=== PATIENT | male | born 1985 | race Caucasian/White ===

== ENCOUNTER 2021-01-03 14:57 | Emergency (ER) | payer OTHER, SELFPAY ==
[2021-01-03] MEDS ORDERED: BUPIVACAINE 0.5% PF 10 ML VIAL ONE (15:44)
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
--- NOTE | 2021-01-03 16:51 | EDPHYS ---
Physician Documentation [facility] Name: Arnulfo Birmingham Age: 35 yrs Sex: Male : 1985 Arrival Date: 01/03/2021 Time: 15:02 Bed 8 Private MD: ED Physician Poli Hill HPI: 01/03 15:24 This 35 yrs old Male presents to ER via Wheelchair with complaints of Hand jmm Injury, Laceration To Hand. 15:24 The patient or guardian reports injury. The complaints affect the palmar aspect of jmm proximal phalanx of left ring finger. Onset: The symptoms/episode began/occurred acutely, just prior to arrival. Modifying factors: The symptoms are alleviated by nothing, the symptoms are aggravated by nothing. Associated signs and symptoms: Pertinent negatives: decreased sensation distally, fever, numbness distally, tingling distally, vomiting. The patient has not experienced similar symptoms in the past. This is a 35 year old male with no chronic medical conditions that presents to the ED with complaints of laceration to the left 4th finger after being crushed on a gate. Not UTD on tetanus immunizations. . Historical: - Allergies: 15:07 No Known Allergies; jd3 - PMHx: 15:07 None; jd3 - PSHx: 15:07 None; jd3 - Immunization history:: Adult Immunizations up to date, Last tetanus immunization: unknown. - Social history:: Smoking status: Patient denies any tobacco usage or history of. ROS: 15:24 Constitutional: Negative for fever, chills, and weight loss, Cardiovascular: Negative jmm for chest pain, palpitations, and edema, Respiratory: Negative for shortness of breath, cough, wheezing, and pleuritic chest pain. 15:24 MS/extremity: Positive for injury or acute deformity, laceration. 15:24 All other systems are negative. Exam: 15:24 Constitutional: This is a well developed, well nourished patient who is awake, alert, jmm and in no acute distress. Head/Face: atraumatic. Eyes: EOMI, no conjunctival erythema appreciated ENT: Moist Mucus Membranes Neck: Trachea midline, Supple Chest/axilla: Normal chest wall appearance and motion. Cardiovascular: Regular rate and rhythm. No edema appreciated Abdomen/GI: Non distended, soft Back: Normal ROM Skin: General appearance color normal MS/ Extremity: Moves all extremities, no obvious deformities appreciated, no edema noted to the lower extremities Neuro: Awake and alert, normal gait 15:24 Musculoskeletal/extremity: 3 cm laceration noted to the left 4th proximal phalanx, FROM appreciated, < 2 sec dist cap refill, (+) NVI. 15:24 Skin: Appearance: Color: normal in color. 15:24 Neuro: Orientation: is normal, Mentation: is normal, Memory: is normal. 15:24 Psych: Behavior/mood is pleasant, cooperative. Vital Signs: 15:07 BP 138 / 91; Pulse 105; Resp 17 S; Temp 98.1(O); Pulse Ox 100% on R/A; Weight 106.59 kg jd3 (R); Height 5 ft. 11 in. (180.34 cm) (R); Pain 10/10; 17:17 BP 136 / 88; Pulse 99; Resp 18; Pulse Ox 98% ; bw 15:07 Body Mass Index 32.78 (106.59 kg, 180.34 cm) jd3 Laceration: 16:49 Wound Repair of 3cm ( 1.2in ) subcutaneous laceration to left hand. Distal jmm neuro/vascular/tendon intact. Anesthesia: Digital block administered with 4 mls of 0.5% marcaine. Wound prep: Simple cleansing with betadine by me. Skin closed with 5 4-0 Prolene using simple sutures and sterile technique. Patient tolerated well. MDM: 15:[address] [facility] 16:49 Data reviewed: vital signs, nurses notes. Counseling: I had a detailed discussion with [facility] the patient and/or guardian regarding: the historical points, exam findings, and any diagnostic results supporting the discharge/admit diagnosis, radiology results, the need for outpatient follow up, to return to the emergency department if symptoms worsen or persist or if there are any questions or concerns that arise at home. ED course: Patient is alert and non toxic in appearance in the ED. Given wound infection return precautions. Patient is currently on abx for cellulitis of his leg. . 03/02 15:33 Order name: Hand Left 3 View XRAY; Complete Time: 16:37 [facility] Administered Medications: 16:00 Drug: Marcaine (0.5 %) 10 ml {Note: administered by PA. Johnathan} Volume: 10 ml; Route: bw Infiltration; Disposition: 18:35 Co-signature as Attending Physician, Poli Hill MD. rn Disposition: 01/03/21 16:50 Discharged to Home. Impression: Finger Laceration. - Condition is Stable. - Discharge Instructions: Laceration Care, Adult. - Medication Reconciliation Form, Thank You Letter, Antibiotic Education, Prescription Opioid Use form. - Follow up: Cesar Garcia MD; When: 1 week; Reason: Recheck today's complaints, Continuance of care, Staple/Suture removal, Re-evaluation by your physician. Signatures: Dispatcher [employer] EDMS Johnathan Mcnulty PA PA jmm Nieto, Roman, MD MD rn Davies, Jonathon, RN RN Carmina Juarez RN RN bw Corrections: (The following items were deleted from the chart) 17:25 16:50 01/03/2021 16:50 Discharged to Home. Impression: Finger Laceration. Condition is bw Stable. Forms are Medication Reconciliation Form, Thank You Letter, Antibiotic Education, Prescription Opioid Use. Follow up: Cesar Garcia; When: 1 week; Reason: Recheck today's complaints, Continuance of care, Staple/Suture removal, Re-evaluation by your physician. karina
[2021-01-03 18:17] VITALS: TEMP 98.1
[2021-01-03 18:18] VITALS: BP 136/88; O2SAT 98
== END 2021-01-03 17:25 | disposition home or self-care (01) ==
LOC: ER 14:57
PROC: 0JQK0ZZ Repair Left Hand Subcutaneous Tissue and Fascia, Open Approach (ICD-10-PCS; principal; 2021-01-03)
DX: S61.215A Laceration without foreign body of left ring finger without damage to nail, initial encounter (principal); W23.0XXA Caught, crushed, jammed, or pinched between moving objects, initial encounter; Y93.9 Activity, unspecified; Y92.9 Unspecified place or not applicable
CPT/HCPCS: 99284

== ENCOUNTER 2022-09-27 12:42 | Emergency (ER) | payer SELFPAY ==
[2022-09-27] MEDS ORDERED: MORPHINE 4 MG/ML SYR ONE ×2 (13:05→15:07)
[2022-09-27] MEDS ORDERED: ONDANSETRON 4 MG/2 ML VIAL ONE (13:06)
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
[2022-09-27] MEDS ORDERED: TDAP (DIPHTH,PERTUSS(ACELL),TET VAC) 0.5 ML VIAL IMVAC ONE (13:38)
[2022-09-27 13:43] LABS: Absolute Lymphocytes (CBC) 1.5 K/uL (0.7-4.9); Hematocrit 39.4 % (39.6-49.0); Lymphocytes % 14.7 % (15.3-44.8); MCV 88.2 fL (80-100); MPV 7.6 fL (7.6-11.3); RBC Red Blood Cell Count 4.47 M/uL (4.33-5.43)
[2022-09-27] MEDS ORDERED: Ringers Lactate 1,000 ML IV ONE (14:02)
[2022-09-27 14:15] LABS: Albumin 3.9 g/dL (3.4-5.0); Bilirubin Total 0.3 mg/dL (0.2-1.0); Potassium 4.3 mmol/L (3.5-5.1); Protein, Total 7.7 g/dL (6.4-8.2)
[2022-09-27 16:36] VITALS: TEMP 98.3
[2022-09-27 16:39] VITALS: BP 133/74; O2SAT 97
== END 2022-09-27 16:10 | disposition short-term general hospital (02) ==
LOC: ER 12:42
DX: T20.20XA Burn of second degree of head, face, and neck, unspecified site, initial encounter (principal); T22.212A Burn of second degree of left forearm, initial encounter; T31.11 Burns involving 10-19% of body surface with 10-19% third degree burns; R52 Pain, unspecified
CPT/HCPCS: 36415; 80053; 82550; 85025; 96361; 96372; 96374; 96375; 99285; J2405; J7120

== ENCOUNTER 2023-05-09 10:42 | Emergency (ER) | payer SELFPAY ==
[2023-05-09] MEDS ORDERED: LIDOCAINE 1% MPF 5 ML VIAL ONE (11:06)
--- NOTE | 2023-05-09 11:13 | ER ---
Nurse's Notes [facility] Name: Arnulfo Birmingham Age: 38 yrs Sex: Male : 1985 Arrival Date: 05/09/2023 Time: 10:42 Bed 12 Private MD: Doug Lancaster T Diagnosis: Laceration without foreign body of left index finger without damage to nail Presentation: 05/09 10:58 Chief complaint: Patient states: Fish hook L hand 2nd digit. Coronavirus screen: ll1 Vaccine status: Patient reports receiving the 2nd dose of the covid vaccine. Client denies travel out of the [place] in the last 14 days. At this time, the client does not indicate any symptoms associated with coronavirus-19. Ebola Screen: Patient denies travel to an Ebola-affected area in the 21 days before illness onset. Initial Sepsis Screen: Does the patient meet any 2 criteria? No. Patient's initial sepsis screen is negative. Does the patient have a suspected source of infection? Yes: Skin breakdown/wound. Risk Assessment: Do you want to hurt yourself or someone else? Patient reports no desire to harm self or others. Onset of symptoms was May 09, 2023. 10:58 Method Of Arrival: Ambulatory ll1 10:58 Acuity: WOODY 4 ll1 Triage Assessment: 10:58 General: Appears uncomfortable, Behavior is calm, cooperative, appropriate for age. ll1 Pain: Complains of pain in left hand Quality of pain is described as aching. Musculoskeletal: Reports fish hook L hand 2nd digit. Injury Description: Foreign body. Historical: - Allergies: 10:58 Morphine; ll1 - Home Meds: 10:58 None [Active]; ll1 - PMHx: 10:58 None; ll1 - PSHx: 10:58 None; ll1 - Immunization history:: Adult Immunizations up to date, Last tetanus immunization: up to date. - Social history:: Smoking status: unknown. - Family history:: not pertinent. - Hospitalizations: : No recent hospitalization is reported. Screenin:19 [facility] ED Fall Risk Assessment (Adult) Score/Fall Risk Level 0 - 2 = Low Risk ll1 Oriented to surroundings, Maintained a safe environment, Educated pt \T\ family on fall prevention, incl call for assistance when getting out of bed, Hourly rounding (assess needs \T\ fall precautionary measures) done. Abuse screen: Denies threats or abuse. Nutritional screening: No deficits noted. Tuberculosis screening: No symptoms or risk factors identified. Assessment: 11:18 Reassessment: No changes from previously documented assessment. Patient and/or family ll1 updated on plan of care and expected duration. Pain level reassessed. Patient is alert, oriented x 3, equal unlabored respirations, skin warm/dry/pink. Musculoskeletal: Circulation, motion, and sensation intact. Capillary refill < 3 seconds. Vital Signs: 10:58 BP 144 / 81; Pulse 80; Resp 16; Temp 98.2; Pulse Ox 100% ; Weight 106.59 kg; Height 5 ll1 ft. 11 in. ; Pain 10/10; 11:20 BP 156 / 83; Pulse 92; Resp 18; Pulse Ox 100% ; Pain 0/10; ll1 10:58 Body Mass Index 32.78 (106.59 kg, 180.34 cm) ll1 10:58 Pain Scale: Adult ll1 11:20 Pain Scale: Adult ll1 ED Course: 10:43 Patient arrived in ED. am2 10:43 Doug Lancaster MD is Private Physician. am2 10:47 Poli Hill MD is Attending Physician. rn 10:58 Arm band placed on Patient placed in an exam room, on a stretcher. ll1 10:59 Triage completed. ll1 11:15 Patient did not have IV access during this emergency room visit. Wound care: to s/p FB ll1 removal located on palmar aspect of proximal phalanx of left index finger was dressed with Neosporin, band aid, Patient tolerated well. 11:18 Michelle Saha RN is Primary Nurse. ll1 11:19 No provider procedures requiring assistance completed. ll1 11:20 Patient has correct armband on for positive identification. Bed in low position. Call ll1 light in reach. Cardiac monitoring not applicable on this patient. Administered Medications: 11:03 Drug: Lidocaine Infiltration (1 %) 1 vials {Note: by Dr. Hill.} Volume: 5 ml; Route: ll1 Infiltration; 11:20 Follow up: Response: No adverse reaction; Pain is decreased ll1 Medication: 11:20 VIS not applicable for this client. ll1 Outcome: 11:12 Discharge ordered by . rn 11:20 Discharged to home ambulatory. ll1 11:20 Condition: stable 11:20 Discharge instructions given to patient, Instructed on discharge instructions, follow up and referral plans. medication usage, wound care, Demonstrated understanding of instructions, follow-up care, medications, Prescriptions given X 1. 11:20 Patient left the ED. 1 Signatures: Poli Hill MD MD rn Moreno, Amanda am2 Lewis, Lynsay, RN RN 1
--- NOTE | 2023-05-09 11:13 | EDPHYS ---
Physician Documentation [facility] Name: Arnulfo Birmingham Age: 38 yrs Sex: Male : 1985 Arrival Date: 05/09/2023 Time: 10:42 Bed 12 Private MD: Doug Lancaster T ED Physician Poli Hill HPI: 05/09 10:52 This 38 yrs old Male presents to ER via Unassigned with complaints of Finger Injury - rn fish hook. 10:52 Trauma demographics: Location of Injury: The injury occurred outdoors. Mechanism of rn injury: Penetrating trauma:. 10:53 The patient or guardian reports the patient has a suspected foreign body, left hand. rn The reported likely foreign body is a fishhook. Onset: The symptoms/episode began/occurred just prior to arrival. Current symptoms: foreign body sensation. The patient has not experienced similar symptoms in the past. The patient has not recently seen a physician. Pt presents with fishhook stuck in left 2nd fingertip. No other injury. Reports tetanus up to date from last injury he sustained. . Historical: - Allergies: 10:58 Morphine; ll1 - Home Meds: 10:58 None [Active]; ll1 - PMHx: 10:58 None; ll1 - PSHx: 10:58 None; ll1 - Immunization history:: Adult Immunizations up to date, Last tetanus immunization: up to date. - Social history:: Smoking status: unknown. - Family history:: not pertinent. - Hospitalizations: : No recent hospitalization is reported. ROS: 10:53 Constitutional: Negative for fever, chills, and weight loss, MS/Extremity: + fishhook rn in left 2nd finger Exam: 10:53 Constitutional: This is a well developed, well nourished patient who is awake, alert, rn and in no acute distress. MS/ Extremity: Pulses equal, no cyanosis. Neurovascular intact. Full, normal range of motion. Left distal volar 2nd fingertip with superficially embedded single fishhook stuck, no active bleeding Vital Signs: 10:58 BP 144 / 81; Pulse 80; Resp 16; Temp 98.2; Pulse Ox 100% ; Weight 106.59 kg; Height 5 ll1 ft. 11 in. ; Pain 10/10; 11:20 BP 156 / 83; Pulse 92; Resp 18; Pulse Ox 100% ; Pain 0/10; ll1 10:58 Body Mass Index 32.78 (106.59 kg, 180.34 cm) ll1 10:58 Pain Scale: Adult ll1 11:20 Pain Scale: Adult ll1 Procedures: 11:09 Foreign Body Removal: a fishhook, from the left 2nd finger, by using a hemostat, cable rn cutters. The patient tolerated the removal well, wound cleansed, FROM of finger following removal, no bleeding. Nerve block: (digital) of palmar aspect of proximal phalanx of left index finger Medication: Lidocaine 1% without epinephrine Amount: 3 mls were injected, Effect: the patient's symptoms are improved, Set up for procedure. Performed by Poli Hill MD Patient tolerated well. MDM: 10:47 Patient medically screened. rn 11:10 Data reviewed: vital signs, nurses notes, and as a result, I will discharge patient. rn Counseling: I had a detailed discussion with the patient and/or guardian regarding: the historical points, exam findings, and any diagnostic results supporting the discharge/admit diagnosis, the need for outpatient follow up, to return to the emergency department if symptoms worsen or persist or if there are any questions or concerns that arise at home. Response to treatment: the patient's symptoms have resolved after treatment, the patient's condition has returned to base line, and as a result, I will discharge patient. Special discussion: I discussed with the patient/guardian in detail that at this point there is no indication for admission to the hospital. It is understood, however, that if the symptoms persist or worsen the patient needs to return immediately for re-evaluation. Administered Medications: 11:03 Drug: Lidocaine Infiltration (1 %) 1 vials {Note: by Dr. Hill.} Volume: 5 ml; Route: ll1 Infiltration; 11:20 Follow up: Response: No adverse reaction; Pain is decreased ll1 Disposition Summary: 05/09/23 11:12 Discharge Ordered Location: Home rn Problem: new rn Symptoms: are resolved rn Condition: Stable rn Diagnosis - Laceration without foreign body of left index finger without damage to nail rn Followup: rn - With: Private Physician - When: As needed - Reason: Recheck today's complaints, Re-evaluation by your physician Discharge Instructions: - Discharge Summary Sheet rn - [place] Removal rn Forms: - Medication Reconciliation Form rn - Thank You Letter rn - Antibiotic information technology internship - Prescription Opioid Use rn - [email or web address] rn Prescriptions: - Augmentin 875-125 mg Oral Tablet - take 1 tablet by ORAL route every 12 hours for 10 days; 20 tablet; Refills: 0, rn Product Selection Permitted Signatures: Poli Hill MD MD rn Lewis, RAVINDRA Martinez RN ll1 Corrections: (The following items were deleted from the chart) 11:12 10:53 Constitutional: This is a well developed, well nourished patient who is awake, rn alert, and in no acute distress. MS/ Extremity: Pulses equal, no cyanosis. Neurovascular intact. Full, normal range of motion. Left distal volar 2nd fingertip with single fishhook stuck, no active bleeding rn
[2023-05-09 11:46] VITALS: TEMP 98.2; O2SAT 100
[2023-05-09 11:47] VITALS: BP 156/83
== END 2023-05-09 11:20 | disposition home or self-care (01) ==
LOC: ER 10:42
DX: S61.221A Laceration with foreign body of left index finger without damage to nail, initial encounter (principal); Z88.5 Allergy status to narcotic agent
CPT/HCPCS: 64450; 99283; J2001

== ENCOUNTER 2024-07-09 15:46 | Emergency (ER) | payer SELFPAY ==
--- NOTE | 2024-07-09 16:18 | ER ---
Nurse's Notes [facility] Name: Arnulfo Birmingham Age: 39 yrs Sex: Male : 1985 Arrival Date: 07/09/2024 Time: 15:46 Bed 12 Private MD: Diagnosis: Foreign body in left ear;Acute suppurative otitis media with spontaneous rupture of ear drum, left ear Presentation: 07/09 15:55 Chief complaint: Patient states: Pt states lost his earbud cover and made one out of dd2 rubber and the rubber dislodged into his lt ear x 5 days ago. Coronavirus screen: At this time, the client does not indicate any symptoms associated with coronavirus-19. Ebola Screen: No symptoms or risks identified at this time. Initial Sepsis Screen: Does the patient meet any 2 criteria? No. Patient's initial sepsis screen is negative. Does the patient have a suspected source of infection? No. Patient's initial sepsis screen is negative. Risk Assessment: Do you want to hurt yourself or someone else? Patient reports no desire to harm self or others. Onset of symptoms is unknown. 15:55 Method Of Arrival: Ambulatory dd2 15:55 Acuity: WOODY 4 dd2 Triage Assessment: 15:57 General: Appears in no apparent distress. Behavior is calm, cooperative, appropriate dd2 for age. Pain: Complains of pain in left ear. Historical: - Allergies: 15:57 No Known Allergies; dd2 - PSHx: 15:57 None; dd2 - Immunization history:: Adult Immunizations unknown. - Infectious Disease History:: Denies. - Social history:: Smoking status: Patient denies any tobacco usage or history of. Screenin:10 [facility] ED Fall Risk Assessment (Adult) History of falling in the last 3 months, aa5 including since admission No falls in past 3 months (0 pts) Confusion or Disorientation No (0 pts) Intoxicated or Sedated No (0 pts) Impaired Gait No (0 pts) Mobility Assist Device Used No (0 pt) Altered Elimination No (0 pt) Score/Fall Risk Level 0 - 2 = Low Risk Oriented to surroundings, Maintained a safe environment, Educated pt \T\ family on fall prevention, incl call for assistance when getting out of bed. Abuse screen: Denies threats or abuse. Nutritional screening: No deficits noted. Tuberculosis screening: No symptoms or risk factors identified. Assessment: 16:10 General: Appears comfortable, Behavior is calm, cooperative. Pain: Complains of pain in aa5 left ear. Neuro: Level of Consciousness is awake, alert, obeys commands, Oriented to person, place, time, situation. Cardiovascular: Patient's skin is warm and dry. Respiratory: Airway is patent Respiratory effort is even, unlabored, Respiratory pattern is regular, symmetrical. GI: No signs and/or symptoms were reported involving the gastrointestinal system. : No signs and/or symptoms were reported regarding the genitourinary system. EENT: Reports FB to left ear . Derm: Skin is pink, warm \T\ dry. Musculoskeletal: Range of motion: intact in all extremities. 16:40 Reassessment: Patient is alert, oriented x 3, equal unlabored respirations, skin aa5 warm/dry/pink. Vital Signs: 15:55 BP 141 / 97; Pulse 79; Resp 16; Temp 98.2(TE); Pulse Ox 100% ; Weight 90.72 kg; Height dd2 5 ft. 11 in. ; 15:55 Body Mass Index 27.89 (90.72 kg, 180.34 cm) dd2 ED Course: 15:51 Patient arrived in ED. mg5 15:52 Froilan Desir PA is PHCP. cp 15:52 Jhonny Millan DO is Attending Physician. cp 15:57 Triage completed. dd2 15:57 Arm band placed on left wrist. Patient placed in an exam room, on a stretcher, on pulse dd2 oximetry, Patient notified of wait time. 16:10 Patient has correct armband on for positive identification. Bed in low position. Call aa5 light in reach. Side rails up X 1. 16:10 Assist provider with foreign body removal of plastic from left ear canal. Performed by aa5 Froilan CANSECO Patient tolerated well. 16:15 Korin Nielson, RAVINDRA is Primary Nurse. aa5 16:16 Rosemarie Reyna MD is Referral Physician. cp 16:40 Patient did not have IV access during this emergency room visit. aa5 Administered Medications: No medications were administered Medication: 16:10 VIS not applicable for this client. aa5 Outcome: 16:17 Discharge ordered by . cp 16:40 Discharged to home ambulatory, with family, aa5 16:40 Condition: stable 16:40 Discharge instructions given to patient, Instructed on discharge instructions, follow up and referral plans. medication usage, Demonstrated understanding of instructions, follow-up care, medications, Prescriptions given X 2, 16:41 Patient left the ED. aa5 Signatures: Korin Nielson, RN RN aa5 Froilan Desir PA PA cp [place], [place] mg5 RICARDO OLVERA RN RN dd2 Corrections: (The following items were deleted from the chart) 15:58 15:57 Allergies: Morphine; dd2 dd2
--- NOTE | 2024-07-09 16:18 | EDPHYS ---
Physician Documentation [facility] Name: Arnulfo Birmingham Age: 39 yrs Sex: Male : 1985 Arrival Date: 07/09/2024 Time: 15:46 Bed 12 Private MD: ED Physician Jhonny Millan HPI: 07/09 16:00 This 39 yrs old Male presents to ER via Ambulatory with complaints of Foreign Body In cp Ear - Rubber. 16:00 The patient presents with a foreign body sensation, piece of plastic, pain, tenderness. cp The complaints affect the left ear. 16:00 Onset: The symptoms/episode began/occurred 5 day(s) ago. cp 16:00 Associated signs and symptoms: Pertinent negatives: cough, fever, lightheadedness, sore cp throat, vomiting. 16:00 Severity of symptoms: in the emergency department the symptoms are unchanged despite cp home interventions. Historical: - Allergies: 15:57 No Known Allergies; dd2 - PSHx: 15:57 None; dd2 - Immunization history:: Adult Immunizations unknown. - Infectious Disease History:: Denies. - Social history:: Smoking status: Patient denies any tobacco usage or history of. ROS: 16:05 ENT: Positive for ear pain, foreign body sensation, Negative for sore throat, cp difficulty swallowing, difficulty handling secretions, 16:05 Respiratory: Negative for cough, shortness of breath, wheezing, cp Exam: 16:10 Constitutional: The patient appears in no acute distress, alert, awake, comfortable, cp non-toxic, well developed, well nourished, 16:10 Head/Face: Normocephalic, atraumatic. cp 16:10 Eyes: Periorbital structures: appear normal, Conjunctiva: normal, no exudate, no injection, Sclera: no appreciated abnormality, Lids and lashes: appear normal, bilaterally, 16:10 ENT: External ear(s): are unremarkable, Ear canal(s): foreign body, a piece of plastic, in the left external ear canal, purulent discharge, in the left canal, mild, TM's: erythema, that is moderate, on the left, Nose: is normal, Mouth: Lips: moist, Oral mucosa: pink and intact, moist, Posterior pharynx: Airway: no evidence of obstruction, patent, 16:10 Neck: ROM/movement: is normal, is supple, without pain, no range of motions limitations, Lymph nodes: no appreciated lymphadenopathy, 16:10 Chest/axilla: Inspection: normal, 16:10 Cardiovascular: Rate: normal, 16:10 Respiratory: the patient does not display signs of respiratory distress, Respirations: normal, no use of accessory muscles, no retractions, labored breathing, is not present, Breath sounds: are clear throughout, no decreased breath sounds, 16:10 Abdomen/GI: Inspection: abdomen appears normal, 16:10 Skin: no rash present. Vital Signs: 15:55 BP 141 / 97; Pulse 79; Resp 16; Temp 98.2(TE); Pulse Ox 100% ; Weight 90.72 kg; Height dd2 5 ft. 11 in. ; 15:55 Body Mass Index 27.89 (90.72 kg, 180.34 cm) dd2 Procedures: 16:12 Foreign Body Removal: piece of plastic, from the left ear canal, by using alligator cp clamps, The patient tolerated the removal well. MDM: 15:59 Patient medically screened. cp 16:17 Data reviewed: vital signs, nurses notes, and as a result, I will discharge patient. cp 16:17 Differential diagnosis: otitis media, otitis externa, ruptured TM, foreign body, acute cp otalgia, cerumen impaction. Counseling: I had a detailed discussion with the patient and/or guardian regarding the historical points, exam findings, and any diagnostic results supporting the discharge/admit diagnosis, to return to the emergency department if symptoms worsen or persist or if there are any questions or concerns that arise at home. Response to treatment: the patient's symptoms have markedly improved after treatment, and as a result, I will discharge patient. Administered Medications: No medications were administered Disposition: 16:15 I was immediately available on-site in the Emergency Department for consultation in the ms3 care of the patient. Disposition Summary: 07/09/24 16:17 Discharge Ordered Notes: Location: Home cp Problem: new cp Symptoms: have improved cp Condition: Stable cp Diagnosis - Foreign body in left ear cp - Acute suppurative otitis media with spontaneous rupture of ear drum, left ear cp Followup: cp - With: Rosemarie Reyna MD - When: 1 week - Reason: Recheck today's complaints Discharge Instructions: - Discharge Summary Sheet cp - Ear Foreign Body cp - Otitis Media, Adult cp Forms: - Medication Reconciliation Form cp - Antibiotic Education cp - Prescription Opioid Use cp - Patient Portal Instructions cp - Leadership Thank You Letter cp Prescriptions: - Augmentin 875-125 mg Oral Tablet - take 1 tablet ORAL route every 12 hours for 10 days; 20 tablet; Refills: 0, cp Product Selection Permitted - Ciprodex 0.3-0.1 % Otic drops, suspension - instill 4 drops OTIC route every 12 hours for 7 days , for ears ONLY; 1 unit; cp Refills: 0, Product Selection Permitted Signatures: Froilan Desir PA PA Jhonny Keith DO DO ms3 RICARDO OLVERA RN RN dd2 Corrections: (The following items were deleted from the chart) 15:58 15:57 Allergies: Morphine; dd2 dd2
[2024-07-09 16:50] VITALS: BP 141/97; TEMP 98.2; O2SAT 100
== END 2024-07-09 16:41 | disposition home or self-care (01) ==
LOC: ER 15:46
PROC: 09C4XZZ Extirpation of Matter from Left External Auditory Canal, External Approach (ICD-10-PCS; principal; 2024-07-09)
DX: T16.2XXA Foreign body in left ear, initial encounter (principal); H66.012 Acute suppurative otitis media with spontaneous rupture of ear drum, left ear
CPT/HCPCS: 99283